=== PATIENT | male | born 1995 | race Caucasian/White ===

== ENCOUNTER 2023-06-28 16:49 | Emergency (ER) | payer OTHER ==
[~2023-06-28] VITALS: Ht 180.3 cm; Wt 61.2 kg
[2023-06-28 18:42] LABS: URINE APPEARANCE Clear; URINE BILIRRUBIN Negative (NEGATIVE); URINE BLOOD Negative; URINE COLOR Yellow; URINE GLUCOSE Negative (NEGATIVE); URINE LEUKOCYTE Negative; URINE NITRATE Negative; URINE PROTEIN Negative (NEGATIVE)
[2023-06-28 18:42] LABS: HEMATOCRIT 39.7 % (39.0-48.0); HEMOGLOBIN 12.8 g/dL (13-16.00); MEAN CELL VOLUME 81.9 fL (80.0-100.00); MEAN CORPUSCULAR HEMOGLOBIN 26.4 pg (27.00-32.0); MEAN CORPUSCULAR HGB CONC 32.3 g/dl (32.0-36.0); PLATELET COUNT 191 K/uL (150-450); RED BLOOD COUNT 4.84 M/uL (4.00-6.00); RED CELL DISTRIBUTION WIDTH 14.7 % (11.5-14.5)
[2023-06-28 18:45] LABS: URINE BACTERIA 36.5 uL (0.0-1933); URINE EPITHELIAL CELLS 3.5 uL (0.0-38.8); URINE WBC 9.4 uL (0.0-23.2)
[2023-06-28 18:48] LABS: URINE RBC 0.7 uL (0.0-20.8)
== END 2023-06-28 19:10 | disposition home or self-care (01) ==
LOC: ER 16:49
PROVIDERS: General Practice
DX: M89.9 Disorder of bone, unspecified (principal)

== ENCOUNTER 2023-07-26 08:13 | Emergency (ER) | payer OTHER ==
[~2023-07-26] VITALS: Ht 180.3 cm; Wt 59.0 kg
[2023-07-26 11:03] LABS: HEMATOCRIT 39.6 % (39.0-48.0); HEMOGLOBIN 13.3 g/dL (13-16.00); MEAN CELL VOLUME 80.5 fL (80.0-100.00); MEAN CORPUSCULAR HGB CONC 33.5 g/dl (32.0-36.0); PLATELET COUNT 166 K/uL (150-450); RED BLOOD COUNT 4.92 M/uL (4.00-6.00); RED CELL DISTRIBUTION WIDTH 14.4 % (11.5-14.5)
[2023-07-26] MEDS ORDERED: ZITHROMAX500 MG PO (11:49)
[2023-07-26] MEDS ORDERED: TUSNEL LIQUID178 ML PO (11:49)
== END 2023-07-26 12:02 | disposition home or self-care (01) ==
LOC: ER 08:14
PROVIDERS: General Practice
DX: J06.9 Acute upper respiratory infection, unspecified (principal); Z20.822 Contact with and (suspected) exposure to COVID-19

== ENCOUNTER 2024-03-06 14:42 | Emergency (ER) | payer OTHER ==
[~2024-03-06] VITALS: Ht 180.3 cm; Wt 59.0 kg
[~2024-03-06 14:42] MED LIST: TUSNEL LIQUID178 ML PO; ZITHROMAX500 MG PO
[2024-03-06] MEDS ORDERED: TETANUS DIPHTHERIA TOX. ADSOR 5 ML VIAL IM ONE (18:01)
[2024-03-06] MEDS ORDERED: LIDOCAINE HCL 1% 10ML VIAL ONE (18:01)
== END 2024-03-06 18:45 | disposition home or self-care (01) ==
LOC: ER 14:43
DX: S61.220A Laceration with foreign body of right index finger without damage to nail, initial encounter (principal); W27.0XXA Contact with workbench tool, initial encounter; Y93.89 Activity, other specified; Y92.89 Other specified places as the place of occurrence of the external cause